=== PATIENT | male | born 1955 | race African-American/Black ===

== ENCOUNTER → 2016-12-06 | Outpatient (CLI) | payer OTHER ==
[~2016-12-06] MED LIST: A & D15 GM TP; ACETAMINOPHEN325 M1 PO; ALLOPURINOL100 MG PO; AMLODIPINE BESYL5 MG PO; AMOXICILLIN500 MG PO; AQUAPHOR W-NAT50 GM TP; ARANESP25 MCG/0.4 SC; ARANESP60 MCG/0.3 IV; ARTIFICIAL TEAR15 M1 BOTH EYES; ARTIFICIAL TEAR15 M6 BOTH EYES; ATIVAN0.5 MG PO; ATOVAQUONE750 MG/5 M PO; AUGMENTIN500 MG PO; CALCITRIOL0.5 MCG PO; CLOPIDOGREL75 MG PO; COMBIGAN O20 DROP/5 BOTH EYES; CONSTULOSE10 GM/15 M PO; COUMADIN1 MG PO; COUMADIN2 MG PO; COUMADIN2.5 MG PO; COUMADIN4 MG PO; COUMADIN5 MG PO; DECARA50000 UNIT PO; DESITIN CLEAR O99 GM TP; DRISDOL50000 UNIT PO; DULCOLAX10 MG PR; ENULOSE10 GM/15 M PO; FAST RELIEF LAX10 MG PR; FEOSOL325 MG PO; FERRO-TIME325 MG PO; FERROUS SULFAT325 MG PO; FLEET ENEMA-AD118 ML PR; FLOMAX0.4 MG PO; FUROSEMIDE20 MG PO; GABAPENTIN100 MG PO; GENERLAC10 GM/15 M PO; HUMULIN R100 UNITS/ SC; HYDROXYCHLOROQ200 MG PO; KEPPRA250 MG PO; KEPPRA500 MG PO; LEVETIRACETAM250 MG PO; LEVETIRACETAM500 MG PO; LORAZEPAM0.5 MG PO; MEPRON750 MG/5 M PO; METOPROLOL TART25 MG PO; MIGHTY SHAKE PO; MILK OF MAGN PO; MIRALAX17 GM PO; NEURONTIN100 MG PO; NORVASC5 MG PO; NOVOLOG 10100 UNITS/ SC; OMEPRAZOLE20 MG PO; OXYCODONE HCL10 MG PO; OXYCODONE HCL5 MG PO; PANCRELIPASE 51 EACH PO; PERCOCET 5/31 TABLET PO; PETROLEUM JELL127 GM TP; PHILLIPS'400 MG/5 M PO; PLAQUENIL200 MG PO; PLAVIX75 MG PO; PRILOSEC OTC20 MG PO; PRILOSEC20 MG PO; PROAIR HFA8.5 GM IH; PROCRIT10000 UNI1 IV; PROCRIT10000 UNI1 SC; PROCRIT40000 UNI1 IV; PROGRAF1 MG PO; PROMETHAZINE HC25 M1 PO; PROVENTIL,2.5 MG/3 M IH; PROVENTIL2.5 MG/3 M IH; QUETIAPINE FUM200 MG PO; RANITIDINE HCL150 M1 PO; RANITIDINE HCL150 MG PO; RENVELA800 MG PO; ROCALTROL0.5 MCG PO; ROXICODONE5 MG PO; SANTYL30 GM TP; SENNA8.6 MG PO; SEROQUEL XR200 MG PO; SEROQUEL200 MG PO; SIMVASTATIN5 MG PO; SODIUM BICARBO325 MG PO; SUPPOSITORY1 EACH PR; SYMBICORT60 INHALA1 IH; Sodium Bicarbonate PO; TACROLIMUS ANHYD1 MG PO; TAMSULOSIN HCL0.4 MG PO; TYLENOL EXTRA500 MG PO; TYLENOL REGULA325 MG PO; VENTOLIN HFA18 GM IH; VIGAMOX 0.60 DROP/3 LEFT EYE; WARFARIN SODIUM3 MG PO; WARFARIN SODIUM4 MG PO; XALATAN2.5 ML BOTH EYES; XALATAN2.5 ML RIGHT EYE; XIFAXAN550 MG PO; ZENPEP; ZENPEP DR 5,001 EACH PO; ZOCOR5 MG PO; ZYLOPRIM100 MG PO
== END ==
LOC: EEG 10:00
DX: R56.9 Unspecified convulsions (principal); Z88.1 Allergy status to other antibiotic agents; Z88.8 Allergy status to other drugs, medicaments and biological substances
CPT/HCPCS: 95819

== ENCOUNTER 2017-01-06 01:00 | Inpatient (IN) | payer OTHER ==
[~2017-01-06] VITALS: Ht 170.2 cm; Wt 65.0 kg
[2017-01-06 02:03] LABS: EOSINOPHIL (%) 0.5 % (0-5); EOSINOPHIL COUNT 0.1 K/uL (0-0.3); HEMATOCRIT 29.5 % (38.0-50.0); IMMATURE GRANULOCYTE (%) 0.5 % (0.0-0.7); IMMATURE GRANULOCYTE COUNT 0.8 K/uL; LYMPHOCYTE COUNT 1.5 K/uL (1.0-2.8); MCH 30.1 PG (29.0-34.0); MCHC 33.2 G/DL (30.0-36.0); MCV 90.5 FL (86-99); MEAN PLAT.VOLUME 11.8 uM^3 (9.0-12.4); MONOCYTE (%) 9.3 % (3-12); MONOCYTE COUNT 1.5 K/uL (0-0.8); NEUTROPHIL (%) 80.2 % (45-76); NEUTROPHIL COUNT 12.7 K/uL (1.8-6.4); PLATELET COUNT 153 K/uL (156-360); RBC DIS.WIDTH-CV 14.3 % (11.8-14.6); RED BLOOD COUNT 3.26 M/uL (4.00-5.50); WHITE BLOOD COUNT 15.8 K/uL (4.1-10.2)
[2017-01-06 02:15] LABS: CHLORIDE 112 mEq/L (99-109); POTASSIUM 4.5 mEq/L (3.7-5.4); SODIUM 137 mEq/L (136-147)
[2017-01-06 02:17] LABS: GLUCOSE 364 mg/dL (70-99)
[2017-01-06 02:18] LABS: ANION GAP 12 MEQ/L (2-14)
[2017-01-06 02:19] LABS: TOTAL BILIRUBIN 2.4 mg/dL (0.0-1.0)
[2017-01-06 02:20] LABS: ALKALINE PHOSPHATASE 117 IU/L (3-129)
[2017-01-06 02:21] LABS: GFR ESTIMATE (CALCULATED) 16 mL/min/
[2017-01-06 02:24] LABS: LIPASE 487 U/L (1.0-51.0)
[2017-01-06 02:27] LABS: UREA NITROGEN (BUN) 113 mg/dL (9-23)
[2017-01-06 02:52] LABS: CREATINE KINASE < 5 IU/L (1-294)
[2017-01-06 04:59] LABS: ADD MIUA? YES; BILIRUBIN NEGATIVE; BLOOD NEGATIVE; COLOR AMBER ((YELLOW)); GLUCOSE (STRIP) NEGATIVE; KETONES NEGATIVE; LEUKOCYTES SMALL; NITRITE NEGATIVE; PROTEIN (STRIP) 30; SPECIFIC GRAVITY 1.016 (1.000-1.030)
[2017-01-06 05:06] LABS: BACTERIA RARE /HPF; EPITHELIAL CELLS 1+ /HPF; MUCUS TRACE /LPF; RED BLOOD CELLS 0-5 /HPF (0-5); UCUL ADDED? NO; WHITE BLOOD CELLS NONE SEEN /HPF (0-5); WHITE BLOOD CELLS CLUMP MOD /HPF (0-5)
[2017-01-06] MEDS ORDERED: QUETIAPINE FUM100 MG PO (10:31)
[2017-01-06] MEDS ORDERED: EPOGEN,PRO20000 UNIT IV (10:33)
[2017-01-06] MEDS ORDERED: LOPERAMIDE2 MG PO (10:35)
[2017-01-06] MEDS ORDERED: COUGH SYRU100 MG/5 M PO (10:35)
[2017-01-06] MEDS ORDERED: BIO FREEZE TP (10:38)
[2017-01-06 11:38] VITALS: BP 108/63
[2017-01-06 15:24] VITALS: BP 117/67
[2017-01-06 16:19] LABS: POINT-OF-CARE METER ID UU13113725
[2017-01-06 19:51] VITALS: BP 100/57
[2017-01-06 20:58] LABS: POINT-OF-CARE METER ID UU13113725
[2017-01-06 23:39] VITALS: BP 105/54
[2017-01-07 03:12] VITALS: BP 98/54
[2017-01-07 07:06] LABS: EOSINOPHIL (%) 0.9 % (0-5); EOSINOPHIL COUNT 0.1 K/uL (0-0.3); HEMATOCRIT 24.2 % (38.0-50.0); IMMATURE GRANULOCYTE (%) 0.8 % (0.0-0.7); IMMATURE GRANULOCYTE COUNT 0.1 K/uL; MCH 30.8 PG (29.0-34.0); MCHC 33.9 G/DL (30.0-36.0); MEAN PLAT.VOLUME 12.1 uM^3 (9.0-12.4); MONOCYTE (%) 10.3 % (3-12); MONOCYTE COUNT 1.6 K/uL (0-0.8); NEUTROPHIL (%) 81.5 % (45-76); NEUTROPHIL COUNT 12.4 K/uL (1.8-6.4); PLATELET COUNT 137 K/uL (156-360); RBC DIS.WIDTH-CV 14.7 % (11.8-14.6); RBC DIS.WIDTH-SD 49.2 % (39-53); RED BLOOD COUNT 2.66 M/uL (4.00-5.50); WHITE BLOOD COUNT 15.2 K/uL (4.1-10.2)
[2017-01-07 07:38] LABS: ANION GAP 15 MEQ/L (2-14); CHLORIDE 117 MEQ/L (99-109); SAMPLE HEMOLYSIS CHECK 0; SAMPLE ICTERIC CHECK 0; SAMPLE LIPEMIA CHECK 0; UREA NITROGEN (BUN) 99 mg/dL (9-23)
[2017-01-07 07:49] LABS: GFR ESTIMATE (CALCULATED) 21 mL/min/; GLUCOSE 91 mg/dL (70-99); SODIUM 145 MEQ/L (136-147)
[2017-01-07 08:36] VITALS: BP 109/69
[2017-01-07 11:48] LABS: POINT-OF-CARE METER ID UU13113725
[2017-01-07 12:11] VITALS: BP 97/54
[2017-01-07 15:04] VITALS: BP 127/58
[2017-01-08 08:41] VITALS: BP 127/66
[2017-01-08 08:43] LABS: ANION GAP 14 MEQ/L (2-14); CHLORIDE 114 MEQ/L (99-109); GFR ESTIMATE (CALCULATED) 27 mL/min/; SAMPLE HEMOLYSIS CHECK 0; SAMPLE ICTERIC CHECK 0; SAMPLE LIPEMIA CHECK 0; SODIUM 144 MEQ/L (136-147); UREA NITROGEN (BUN) 94 mg/dL (9-23)
[2017-01-08 08:44] LABS: GLUCOSE 191 mg/dL (70-99)
[2017-01-08 11:13] LABS: POINT-OF-CARE METER ID UU13113725
[2017-01-09 06:21] LABS: EOSINOPHIL (%) 0.7 % (0-5); EOSINOPHIL COUNT 0.1 K/uL (0-0.3); HEMATOCRIT 23.2 % (38.0-50.0); IMMATURE GRANULOCYTE (%) 0.5 % (0.0-0.7); IMMATURE GRANULOCYTE COUNT 0.1 K/uL; LYMPHOCYTE COUNT 1.3 K/uL (1.0-2.8); MCH 29.5 PG (29.0-34.0); MCHC 32.8 G/DL (30.0-36.0); MCV 89.9 FL (86-99); MEAN PLAT.VOLUME 11.8 uM^3 (9.0-12.4); MONOCYTE (%) 10.9 % (3-12); MONOCYTE COUNT 1.4 K/uL (0-0.8); NEUTROPHIL (%) 78.2 % (45-76); NEUTROPHIL COUNT 10.2 K/uL (1.8-6.4); PLATELET COUNT 131 K/uL (156-360); RBC DIS.WIDTH-CV 14.5 % (11.8-14.6); RBC DIS.WIDTH-SD 47.7 % (39-53); RED BLOOD COUNT 2.58 M/uL (4.00-5.50); WHITE BLOOD COUNT 13.1 K/uL (4.1-10.2)
[2017-01-09 07:09] LABS: ANION GAP 10 MEQ/L (2-14); CHLORIDE 111 MEQ/L (99-109); GFR ESTIMATE (CALCULATED) 31 mL/min/; GLUCOSE 162 mg/dL (70-99); POTASSIUM 3.5 MEQ/L (3.7-5.4); SAMPLE HEMOLYSIS CHECK 0; SAMPLE ICTERIC CHECK 0; SAMPLE LIPEMIA CHECK 0; SODIUM 144 MEQ/L (136-147); UREA NITROGEN (BUN) 84 mg/dL (9-23)
[2017-01-09 08:50] VITALS: BP 160/82
== END 2017-01-09 21:09 | disposition short-term general hospital (02) | DRG 682 ==
LOC: EME → EDBD 01:00 → EDOF 04:00 → 5EAST 04:00
PROVIDERS: Emergency Medicine; Internal Medicine
DX: N17.9 Acute kidney failure, unspecified (principal); G93.41 Metabolic encephalopathy; E87.2 Acidosis; Z94.0 Kidney transplant status; R64 Cachexia; I13.0 Hypertensive heart and chronic kidney disease with heart failure and stage 1 through stage 4 chronic kidney disease, or unspecified chronic kidney disease; I50.30 Unspecified diastolic (congestive) heart failure; T86.10 Unspecified complication of kidney transplant; Y83.0 Surgical operation with transplant of whole organ as the cause of abnormal reaction of the patient, or of later complication, without mention of misadventure at the time of the procedure; M32.9 Systemic lupus erythematosus, unspecified; N18.4 Chronic kidney disease, stage 4 (severe); I12.9 Hypertensive chronic kidney disease with stage 1 through stage 4 chronic kidney disease, or unspecified chronic kidney disease; E86.0 Dehydration; F03.90 Unspecified dementia, unspecified severity, without behavioral disturbance, psychotic disturbance, mood disturbance, and anxiety; J44.9 Chronic obstructive pulmonary disease, unspecified; G40.909 Epilepsy, unspecified, not intractable, without status epilepticus; E11.22 Type 2 diabetes mellitus with diabetic chronic kidney disease; D63.1 Anemia in chronic kidney disease; N40.0 Benign prostatic hyperplasia without lower urinary tract symptoms; Z87.891 Personal history of nicotine dependence; E55.9 Vitamin D deficiency, unspecified; E87.6 Hypokalemia
CPT/HCPCS: 36415; 74176; 80053; 80069; 80197 90; 81003; 82140; 82550; 82803; 82948; 83036; 83605; 83690; 85025; 87040; 93005; 94799; 99202; 99281; 99284; J0692; J0881; J1630; J1644; J1756; J1815; J7030; J7050; J7070; J7120; J7507

== ENCOUNTER 2017-02-08 10:03 | Day surgery (SDC) | payer OTHER ==
[~2017-02-08] VITALS: Ht 180.3 cm; Wt 65.0 kg
[~2017-02-08 10:03] MED LIST changes: +BIO FREEZE TP; +COREG6.25 M1 PO; +COUGH SYRU100 MG/5 M PO; +DAILY VALUE1 EACH PO; +EPOGEN,PRO20000 UNIT IV; +LATANOPROST2.5 ML RIGHT EYE; +LIQUITEARS BOTH EYES; +LOPERAMIDE2 MG PO; +MAGNESIUM400 M1 PO; +MARINOL2.5 M1 PO; +OMEPRAZOLE40 M1 PO; +QUETIAPINE FUM100 MG PO; +REMERON15 M2 PO; +SEROQUEL100 MG PO
[2017-02-08 10:51] LABS: POINT-OF-CARE METER ID UU13113696
== END 2017-02-08 14:15 ==
LOC: CATH 10:03
PROVIDERS: Surgery
DX: I87.8 Other specified disorders of veins (principal); I87.1 Compression of vein; D57.1 Sickle-cell disease without crisis; J44.9 Chronic obstructive pulmonary disease, unspecified; E11.9 Type 2 diabetes mellitus without complications; I10 Essential (primary) hypertension; E78.5 Hyperlipidemia, unspecified; E03.9 Hypothyroidism, unspecified; I48.91 Unspecified atrial fibrillation; Z86.19 Personal history of other infectious and parasitic diseases; Z94.0 Kidney transplant status; Z95.820 Peripheral vascular angioplasty status with implants and grafts; F17.200 Nicotine dependence, unspecified, uncomplicated
CPT/HCPCS: 82948; C1752; C1769; C1894; J0690; J1644; J2250; J3010; S0020